=== PATIENT | female | born 1995 ===

== ENCOUNTER 2022-09-21 13:36 | Emergency (ER) | payer SELFPAY ==
[2022-09-21 13:41] VITALS: BP 151/102; PULSE 111; RESP 18; TEMP 36.8; O2SAT 94; BMI 30.9
--- NOTE | 2022-09-21 14:02 | XR_ITS ---
WS: [id number] Portable AP upright chest, 09/21/2022 Clinical Data: ams Comparison: None. Findings: No nodules, masses or effusions are seen. The heart is normal. The pulmonary vascularity is not increased. No pneumonia or pneumothorax is seen. Impression: Negative chest.
--- NOTE | 2022-09-21 14:02 | CT_ITS ---
WS: [id number] CT HEAD NONCONTRAST HISTORY: ams, headache, tachycardia TECHNIQUE: Contiguous axial imaging performed through the brain in 2.5 mm imaging. Bone and soft tiss ue windows. Sagittal and coronal reformats reviewed. All CT scans at [facility] use at least one of these dose optimization techniques: automated exposure control; mA and/or kV adjustment per pa tient size (includes targeted exams where dose is matched to clinical indication); or iterative recon struction. DLP: 1043.44 mGy.cm COMPARISON: None available. No acute intracranial hemorrhage, midline shift or mass effect. No atrophy or prior infarcts or herniation. Ventricles: Normal size with no hydrocephalus. Paranasal sinuses: As visualized are clear. Mastoid air cells: Well pneumatized. Calvarium and scalp: Skull is intact with no soft tissue edema or swelling. IMPRESSION: Negative head CT.
--- NOTE | 2022-09-21 14:28 | W.ED.PSYCHS ---
HPI - Psych General: Chief Complaint: Psychiatric Symptoms Stated Complaint: stroke like syt Time Seen by Provider: 09/21/22 13:51 Limitations: altered mental status and physical limitation History of Present Illness: Presents to the ER with absence seizure-like symptoms. Patient had these yesterday and also has them today. Yesterday patient was complaining of a headache which she normally has migraines. These progressed to the patient being unable to speak and staring off into space for a large period of time. Patient was taken to [place] [facility] where they did lab work and urine test gave her milligram Ativan and the symptoms resolved. Patient was seen by psychiatry at that facility and they felt there was not psychiatric in nature. Patient started having symptoms again today similar in nature of having a headache and then progressively staring off into space becoming unable to answer questions and appears to be in her own world. Patient's brought her here today to be evaluated and treated again. Patient has never had these symptoms before. Patient has had migraines for a long time. Patient is currently on amitriptyline and duloxetine and possibly ropinirole. Review of Systems General: Reports: ROS unobtainable due to medical condition and ROS unobtainable due to mental status (History and review of systems obtained from .) Physical Exam Const: COMMON NORMALS: no acute distress, average body habitus, healthy appearing, alert and well nourished; limitations (Will not respond and/or answer questions. Or follow commands.) HENMT: COMMON NORMALS: normocephalic, atraumatic, external ears normal, Normal external nose present and moist oral mucous membranes HEAD & SCALP: normocephalic and atraumatic NOSE: Normal external nose present EXTERNAL EAR: Yes external ears normal Eye: COMMON NORMALS: Equal, round and reactive pupils present, EOMs intact bilaterally, conjunctivae normal and no scleral icterus CONJUNCTIVA: Yes conjunctivae normal PUPIL: Yes Equal, round and reactive pupils present Neck/C-Spine: COMMON NORMALS: full ROM, no lymphadenopathy, supple, no meningeal signs, no JVD and Thyroid normal THYROID: Thyroid normal Lymph: LYMPHATIC: no lymphadenopathy noted Chest: COMMONS NORMALS: normal inspection of the chest and normal palpation of entire chest wall Resp: COMMON NORMALS: normal respiratory effort, No retractions, No use of accessory muscles and clear to auscultation bilaterally AUSCULTATION: clear to auscultation bilaterally Cardio: COMMON NORMALS: no JVD, regular rate, regular rhythm, S1 normal heart sound present, S2 normal heart sound present, No gallops present (Cardio), No clicks present (Cardio), No murmurs present (Cardio) and No rub (Cardio) RATE: regular rate RHYTHM: regular rhythm HEART SOUNDS: S1 normal heart sound present and S2 normal heart sound present GI: COMMON NORMALS: Normal to inspection, nondistended, normoactive bowel sounds present, Soft to palpation, non-tender and No hepatosplenomegaly present PALPATION: Yes Soft to palpation and Yes No hepatosplenomegaly present : COMMON NORMALS: Yes no CVA tenderness BLADDER/KIDNEY EXAM: Yes no CVA tenderness Back/Pelvis: COMMON NORMALS: no CVA tenderness Neuro: SENSORIUM/ORIENTATION: Yes alert MENINGEAL SIGNS: Yes no meningeal signs Course Vital Signs: Vital signs: Vital Signs Temperature 98.3 F 09/21/22 13:41 Pulse Rate 86 09/21/22 18:31 Respiratory Rate 17 09/21/22 14:43 Blood Pressure 117/75 09/21/22 18:31 Pulse Oximetry 99 09/21/22 18:31 Oxygen Delivery Me thod Room Air 09/21/22 18:31 MDM - Psych Medical Decision Making Patient was worked up with blood work urine and a head CT. All of which essentially came back normal except for a very mildly elevated prolactin. Patient was given 1 mg Ativan and 6 mg of Imitrex and upon further evaluation patient was 100% back to normal she was speaking clearly moving all extremities. Patient has a follow-up with her new primary care doc tomorrow and was instructed to tell her that she was here and that we suggested referring her to a neurologist. Patient has [facility] so this is a not so easy referral for us so I will just let the PCP go ahead and do this. Patient will be discharged home Differential Diagnosis Unlikely acute psychosis, chronic schizophrenia, suicidal ideation, bipolar disorder, depression, drug-induced psychotic disorder or acute anxiety Medical Records I reviewed the patient's medical records. Lab Data I reviewed the patient's lab results. 09/21/22 14:32 09/21/22 14:32 Laboratory Results WBC 10.0 10^3/uL (4.0-10.0) 09/21/22 14:32 RBC 4.54 10^6/uL (4.1-5.3) 09/21/22 14:32 Hgb 12.7 g/dL (11.5-15.3) 09/21/22 14:32 Hct 39.0 % (37.0-47.0) 09/21/22 14:32 MCV 85.9 fl (81-99) 09/21/22 14:32 MCH 28.0 pg (28.0-34.0) 09/21/22 14:32 MCHC 32.6 g/dL (30.0-36.0) 09/21/22 14:32 RDW 12.7 % (12.1-15.1) 09/21/22 14:32 Plt Count 387 10^3/cmm (130-400) 09/21/22 14:32 MPV 9.0 fL (7.4-10.4) 09/21/22 14:32 Neut % (Auto) 62.7 % 09/21/22 14:32 Lymph % (Auto) 30.9 % 09/21/22 14:32 [place] % (Auto) 5.0 % 09/21/22 14:32 Eos % (Auto) 0.8 % 09/21/22 14:32 Baso % (Auto) 0.3 % 09/21/22 14:32 Neut # (Auto) 6.27 10^3/uL (1.8-7.7) 09/21/22 14:32 Lymph # (Auto) 3.1 10^3/uL (0.8-4.8) 09/21/22 14:32 [place] # (Auto) 0.5 10^3/uL (0.2-0.9) 09/21/22 14:32 Eos # (Auto) 0.1 10^3/uL (0.0-0.8) 09/21/22 14:32 Baso # (Auto) 0.0 10^3/uL (0.0-0.1) 09/21/22 14:32 Nucleated RBC % (auto) 0 % 09/21/22 14:32 Nucleated RBCs # 0.0 /100WBC 09/21/22 14:32 Sodium 135 mmol/L (136-145) L 09/21/22 14:32 Potassium 4.3 mmol/L (3.5-5.1) 09/21/22 14:32 Chloride 102 mmol/L (98-107) 09/21/22 14:32 Carbon Dioxide 22 mmol/L (22-29) 09/21/22 14:32 Anion Gap 15.3 (5-19) 09/21/22 14:32 BUN 10 mg/dL (6-20) 09/21/22 14:32 Creatinine 0.7 mg/dL (0.5-0.9) 09/21/22 14:32 GFR Calculation 99.6 mL/min (90-130) 09/21/22 14:32 Glucose 101 mg/dL (65-115) 09/21/22 14:32 Calculated Osmolality 279 mOsm/kg (285-295) L 09/21/22 14:32 Calcium 9.2 mg/dL (8.5-10.5) 09/21/22 14:32 Magnesium 1.8 mg/dL (1.7-2.3) 09/21/22 14:32 Total Bilirubin 0.2 mg/dL (0.15-1.2) 09/21/22 14:32 AST 23 U/L (0-32) 09/21/22 14:32 ALT 33 U/L (0-33) 09/21/22 14:32 Alkaline Phosphatase 94 U/L (35-105) 09/21/22 14:32 Total Protein 7.7 g/dL (6.6-8.7) 09/21/22 14:32 Albumin 4.2 g/dL (3.5-5.2) 09/21/22 14:32 Globulin 3.5 g/dL (1.3-4.6) 09/21/22 14:32 TSH 2.01 uIU/mL (0.27-4.20) 09/21/22 14:32 Prolactin 27.73 ng/mL (4.8-23.3) H 09/21/22 14:32 Discharge Plan Discharge Patient Disposition: Home Clinical Impression: Atypical migraine, Elevated prolactin level Condition: Stable Prescriptions: No Action amitriptyline 25 mg tablet 25 mg PO BEDTIME ropinirole 0.5 mg tablet See Rx Instructions .ROUTE .COMPLEX Rx Instructions: 0.5 mg orally 1 to 3 hours before bedtime. duloxetine 60 mg capsule,delayed release(DR/EC) 60 mg PO DAILY Discharge Orders: Discharge ED (Routine); Ordered 09/21/22 Ordered By: Johny Johnson Patient Instructions: Migraine Headache (ED), New Onset Absence Seizures in Adults (ED) Activity Restrictions/Additional Instructions: Your work-up came back essentially benign except for mildly elevated prolactin. Prolactin may be elevated with seizure-like activity although this is not specific. Your behavior during this episode also could be associated with absence type seizures or hemiplegic type migraines. You were given 1 mg of Ativan as well as 6 mg of Imitrex to treat both conditions. Please follow-up with your family practice doctor at your already scheduled appointment tomorrow and please suggest that you may benefit from referral to a neurologist that can help differentiate these issues. Coding Level of Care Code ED Editorial Assistant for Simon Owens
[2022-09-21] MEDS: LORazepam 2 mg/mL INJ 1 mL 1 MG IM (14:38)
[2022-09-21] MEDS: SUMAtriptan 6 mg/0.5 mL SDV SUBCUT (14:38)
[2022-09-21 14:43] VITALS: BP 130/88; PULSE 99; RESP 17; O2SAT 99
[2022-09-21 14:48] LABS: Basophils % 0.3 %; Eosinophils # 0.1 10^3/uL (0.0-0.8); Eosinophils % 0.8 %; Hemoglobin 12.7 g/dL (11.5-15.3); Lymphocytes # 3.1 10^3/uL (0.8-4.8); Lymphocytes % 30.9 %; Mean Corpuscular HGB Conc 32.6 g/dL (30.0-36.0); Mean Corpuscular Volume 85.9 fl (81-99); Monocytes # 0.5 10^3/uL (0.2-0.9); Neutrophils # 6.27 10^3/uL (1.8-7.7); Neutrophils % 62.7 %; Nucleated Red Blood Cells % 0 %; Platelet Count 387 10^3/cmm (130-400); Red Blood Count 4.54 10^6/uL (4.1-5.3); Red Cell Distribution Width 12.7 % (12.1-15.1)
[2022-09-21 15:19] LABS: Alanine Aminotransferase 33 U/L (0-33); Albumin Level 4.2 g/dL (3.5-5.2); Alkaline Phosphatase 94 U/L (35-105); Anion Gap 15.3 (5-19); Aspartate Amino Transferase 23 U/L (0-32); Blood Urea Nitrogen 10 mg/dL (6-20); Calcium 9.2 mg/dL (8.5-10.5); Carbon Dioxide 22 mmol/L (22-29); Chloride 102 mmol/L (98-107); Globulin 3.5 g/dL (1.3-4.6); Glomerular Filtration Rate 99.6 mL/min (90-130); Glucose 101 mg/dL (65-115); Magnesium 1.8 mg/dL (1.7-2.3); Osmolality Calculated 279 mOsm/kg (285-295); Potassium 4.3 mmol/L (3.5-5.1); Prolactin 27.73 ng/mL (4.8-23.3); Sodium 135 mmol/L (136-145); Thyroid Stimulating Hormone 2.01 uIU/mL (0.27-4.20); Total Bilirubin 0.2 mg/dL (0.15-1.2); Total Protein 7.7 g/dL (6.6-8.7)
[2022-09-21 16:03] VITALS: BP 142/78; PULSE 88; O2SAT 98
[2022-09-21 17:31] VITALS: BP 119/81; PULSE 91; O2SAT 100
[2022-09-21 18:31] VITALS: BP 117/75; PULSE 86; O2SAT 99
[2022-09-21 18:58] VITALS: BP 127/93; PULSE 94; O2SAT 100
== END 2022-09-21 18:59 | disposition home or self-care (01) ==
PROVIDERS: Emergency Provider Emergency Medicine
DX: G43.809 Other migraine, not intractable, without status migrainosus (principal); E22.1 Hyperprolactinemia
CPT/HCPCS: 36415; 70450; 71045; 80053; 83735; 84146; 84443; 85025; 96372; 99284; J2060; J3030

== ENCOUNTER 2022-09-23 04:25 | Emergency (ER) | payer OTHER, SELFPAY ==
[2022-09-23 04:31] VITALS: BP 148/97; PULSE 111; RESP 18; TEMP 36.7; O2SAT 100; BMI 30.9
[2022-09-23 05:44] LABS: Basophils % 0.4 %; Eosinophils # 0.1 10^3/uL (0.0-0.8); Eosinophils % 1.2 %; Hematocrit 40.5 % (37.0-47.0); Hemoglobin 13.1 g/dL (11.5-15.3); Lymphocytes # 3.8 10^3/uL (0.8-4.8); Lymphocytes % 36.7 %; Mean Corpuscular HGB Conc 32.3 g/dL (30.0-36.0); Mean Corpuscular Hemoglobin 27.7 pg (28.0-34.0); Mean Corpuscular Volume 85.6 fl (81-99); Mean Platelet Volume 8.9 fL (7.4-10.4); Monocytes # 0.6 10^3/uL (0.2-0.9); Monocytes % 5.5 %; Neutrophils # 5.76 10^3/uL (1.8-7.7); Neutrophils % 55.8 %; Nucleated Red Blood Cells % 0 %; Platelet Count 433 10^3/cmm (130-400); Red Blood Count 4.73 10^6/uL (4.1-5.3); Red Cell Distribution Width 12.6 % (12.1-15.1); White Blood Count 10.3 10^3/uL (4.0-10.0)
[2022-09-23 05:55] LABS: Alanine Aminotransferase 30 U/L (0-33); Albumin Level 4.6 g/dL (3.5-5.2); Alkaline Phosphatase 104 U/L (35-105); Anion Gap 15.9 (5-19); Aspartate Amino Transferase 17 U/L (0-32); Blood Urea Nitrogen 6 mg/dL (6-20); Calcium 8.9 mg/dL (8.5-10.5); Carbon Dioxide 24 mmol/L (22-29); Chloride 100 mmol/L (98-107); Creatinine Clr Calc Pharmacy 108.2219; Globulin 3.7 g/dL (1.3-4.6); Glomerular Filtration Rate 85.4 mL/min (90-130); Glucose 103 mg/dL (65-115); Osmolality Calculated 280 mOsm/kg (285-295); Potassium 3.9 mmol/L (3.5-5.1); Sodium 136 mmol/L (136-145); Total Bilirubin 0.2 mg/dL (0.15-1.2); Total Protein 8.3 g/dL (6.6-8.7)
[2022-09-23 06:06] VITALS: BP 148/97; PULSE 93; O2SAT 99
[2022-09-23 06:09] LABS: Lactic Sepsis W/Reflex 1.6 mmol/L (0.5-2.2)
--- NOTE | 2022-09-23 06:25 | ED_ITS ---
HPI - Seizure General: Chief Complaint: Seizure Stated Complaint: seizures Time Seen by Provider: 09/23/22 05:39 History of Present Illness: HPI Narrative: 27 years old female presents emergency room with absence of seizure- like activity. Patient was initially seen and evaluated at this ER for similar complaint few days ago according to the patient was not evaluated yesterday at a different hospital and our concern. During that ER visit patient had extensive work-up done for the patient was having panic attacks. Was given Ativan and the symptoms resolved. Patient was referred to neurologist few years ago but unable to get in due to insurance issues denies any headache, blurry vision, change in vision, numbness or tingling. No nausea or vomiting. Associated symptoms: Deny chest pain or syncope Review of Systems General: Reports: 10 or more systems reviewed and unremarkable except in HPI and below Card: Denies: chest pain, palpitations, irregular heart rhythm, swelling of feet/ankles, lightheadedness or syncope Musc: Denies: neck pain, back pain, extremity pain or extremity swelling Neuro: Reports: seizure-like activity; Denies: headache(s), numbness in extremities, weakness in extremities, sensory changes, lack of coordination, dizziness, vertigo or Slurred speech present Psych: Reports: anxiety and panic attacks; Denies: hopelessness, paranoia, visual hallucinations, tactile hallucinations, suicidal ideation or homicidal ideation Physical Exam Const: COMMON NORMALS: no acute distress, average body habitus, patient oriented x3, no limitations, healthy appearing, alert and well nourished HENMT: COMMON NORMALS: normocephalic, atraumatic, hearing grossly normal bilaterally, external ears normal, EAC's normal, TM's normal bilaterally, Normal external nose present, Normal nasal mucous membranes and turbinates present, moist oral mucous membranes, oropharynx normal, dentition normal and gingiva normal HEAD & SCALP: normocephalic and atraumatic NOSE: Normal external nose present and Normal nasal mucous membranes and turbinates present EXTERNAL EAR: Yes external ears normal EXTERNAL AUDITORY CANAL: EAC's normal TYMPANIC MEMBRANE: TM's normal bilaterally Eye: COMMON NORMALS: Equal, round and reactive pupils present, EOMs intact karime aterally, conjunctivae normal, no scleral icterus, no papilledema, normal visual benjamin by confrontation and fundi normal bilaterally CONJUNCTIVA: Yes conjunctivae normal PUPIL: Yes Equal, round and reactive pupils present DIRECT OPHTHALMOSCOPY: Yes no papilledema and Yes fundi normal bilaterally Neck/C-Spine: COMMON NORMALS: no meningeal signs Chest: COMMONS NORMALS: normal inspection of the chest, normal palpation of entire chest wall, normal inspection of the breasts and normal palpation of the breasts Breast/axilla inspection: Yes normal inspection of the breasts BREAST/AXILLA PALPATION: Yes normal palpation of the breasts Resp: COMMON NORMALS: normal respiratory effort, No retractions, No use of accessory muscles, clear to auscultation bilaterally and percussion normal AUSCULTATION: clear to auscultation bilaterally PERCUSSION: percussion normal Neuro: COMMON NORMALS: patient oriented x3 SENSORIUM/ORIENTATION: Yes alert MENINGEAL SIGNS: Yes no meningeal signs GAIT: Yes Normal gait present Course Reevaluation(s): Reevaluation #1: Patient made stable emergency room without any acute distress. She will be given referral to see neurology. Vital Signs: Vital signs: Vital Signs Temperature 98.1 F 09/23/22 04:31 Pulse Rate 93 09/23/22 06:06 Respiratory Rate 18 09/23/22 04:31 Blood Pressure 148/97 09/23/22 06:06 Pulse Oximetry 99 09/23/22 06:06 Oxygen Delivery Me thod Room Air 09/23/22 04:31 MDM - Seizure MDM Narrative Medical decision making narrative: Patient was made comfortable emergency room. Patient had extensive work-up including CBC, CMP lactic acid Differential Diagnosis Seizure Differential Diagnosis: Likely intractable seizure disorder, febrile convulsion, focal seizure, generalized seizure, new onset seizure, epileptic seizure and status epilepticus Lab Data 09/23/22 04:45 09/23/22 04:45 Labs: Laboratory Results WBC 10.3 10^3/uL (4.0-10.0) H 09/23/22 04:45 RBC 4.73 10^6/uL (4.1-5.3) 09/23/22 04:45 Hgb 13.1 g/dL (11.5-15.3) 09/23/22 04:45 Hct 40.5 % (37.0-47.0) 09/23/22 04:45 MCV 85.6 fl (81-99) 09/23/22 04:45 MCH 27.7 pg (28.0-34.0) L 09/23/22 04:45 MCHC 32.3 g/dL (30.0-36.0) 09/23/22 04:45 RDW 12.6 % (12.1-15.1) 09/23/22 04:45 Plt Count 433 10^3/cmm (130-400) H 09/23/22 04:45 MPV 8.9 fL (7.4-10.4) 09/23/22 04:45 Neut % (Auto) 55.8 % 09/23/22 04:45 Lymph % (Auto) 36.7 % 09/23/22 04:45 [place] % (Auto) 5.5 % 09/23/22 04:45 Eos % (Auto) 1.2 % 09/23/22 04:45 Baso % (Auto) 0.4 % 09/23/22 04:45 Neut # (Auto) 5.76 10^3/uL (1.8-7.7) 09/23/22 04:45 Lymph # (Auto) 3.8 10^3/uL (0.8-4.8) 09/23/22 04:45 [place] # (Auto) 0.6 10^3/uL (0.2-0.9) 09/23/22 04:45 Eos # (Auto) 0.1 10^3/uL (0.0-0.8) 09/23/22 04:45 Baso # (Auto) 0.0 10^3/uL (0.0-0.1) 09/23/22 04:45 Nucleated RBC % (auto) 0 % 09/23/22 04:45 Nucleated RBCs # 0.0 /100WBC 09/23/22 04:45 Sodium 136 mmol/L (136-145) 09/23/22 04:45 Potassium 3.9 mmol/L (3.5-5.1) 09/23/22 04:45 Chloride 100 mmol/L (98-107) 09/23/22 04:45 Carbon Dioxide 24 mmol/L (22-29) 09/23/22 04:45 Anion Gap 15.9 (5-19) 09/23/22 04:45 BUN 6 mg/dL (6-20) 09/23/22 04:45 Creatinine 0.8 mg/dL (0.5-0.9) 09/23/22 04:45 GFR Calculation 85.4 mL/min (90-130) L 09/23/22 04:45 Glucose 103 mg/dL (65-115) 09/23/22 04:45 Calculated Osmolality 280 mOsm/kg (285-295) L 09/23/22 04:45 Lactic Acid 1.6 mmol/L (0.5-2.2) 09/23/22 05:45 Calcium 8.9 mg/dL (8.5-10.5) 09/23/22 04:45 Total Bilirubin 0.2 mg/dL (0.15-1.2) 09/23/22 04:45 AST 17 U/L (0-32) 09/23/22 04:45 ALT 30 U/L (0-33) 09/23/22 04:45 Alkaline Phosphatase 104 U/L (35-105) 09/23/22 04:45 Total Protein 8.3 g/dL (6.6-8.7) 09/23/22 04:45 Albumin 4.6 g/dL (3.5-5.2) 09/23/22 04:45 Globulin 3.7 g/dL (1.3-4.6) 09/23/22 04:45 Discharge Plan Discharge Patient Disposition: Home Clinical Impression: Seizure-like activity, Anxiety Condition: Stable Prescriptions: New alprazolam [Xanax] 0.5 mg tablet 0.5 mg PO BID PRN (Reason: anxiety) Qty: 10 0RF No Action amitriptyline 25 mg tablet 25 mg PO BEDTIME ropinirole 0.5 mg tablet See Rx Instructions .ROUTE .COMPLEX Rx Instructions: 0.5 mg orally 1 to 3 hours before bedtime. duloxetine 60 mg capsule,delayed release(DR/EC) 60 mg PO DAILY Discharge Orders: Discharge ED (Routine); Ordered 09/23/22 Ordered By: Fozia Ivory Patient Instructions: Opioid Safety, Pain Management Coding Level of Care Code ED Planning Management It Specialist for Simon Owens
[2022-09-23 06:46] VITALS: BP 148/97; O2SAT 98
[2022-09-23 07:14] VITALS: PULSE 81; O2SAT 96
--- NOTE | 2022-09-23 11:07 | DCPLANNER ---
Addendum entered by Lou Rizvi 09/26/22 14:02: retail assistant manager received the following message from the neurology clinic: pt does not want an apt here Original Note: retail assistant manager had message to schedule a follow up appointment for patient with neurology. retail assistant manager sent patients information to the front office staff at neurology. Patients information will be printed and reviewed. Clinic will call patient with appointment information.
--- NOTE | 2022-09-23 11:26 | DCPLANNER ---
personalized living manager nurse called patient due to no primary care physician - patient stated that she has a primary care physician.
== END 2022-09-23 07:15 | disposition home or self-care (01) ==
PROVIDERS: Emergency Provider Family Medicine
DX: R56.9 Unspecified convulsions (principal); F41.9 Anxiety disorder, unspecified
CPT/HCPCS: 36415; 80053; 83605; 85025; 99283